=== PATIENT | male | born 1935 | race Caucasian/White ===

== ENCOUNTER 2020-06-18 10:56 | Observation (INO) ==
[2020-06-18 12:03] LABS: Hemoglobin 12.9 g/dL (12.9-16.9); Mean Corpuscular HGB Conc 32.3 g/dL (31.6-35.5); Mean Corpuscular Volume 96.2 fL (83.0-100.0); Mean Platelet Volume 10.2 fL (9.4-12.4); Platelet Count 238 K/mcL (140-400); Red Blood Count 4.16 M/mcL (4.19-5.50); Red Cell Distribution Width 13.5 % (11.5-14.5); White Blood Count 11.9 K/mcL (4.3-11.1)
[2020-06-18 12:09] LABS: INR 1.3; Prothrombin Time 15.1 Seconds (9.4-12.1)
[2020-06-18 12:12] LABS: Bilirubin,Urine Negative (Negative); Blood,Urine Moderate (Negative); Clarity,Urine Ex.Turbid (Clear); Color,Urine Red (Yellow); Glucose,Urine (UA) Normal (Normal); Ketones,Urine Trace mg/dL (Negative); Leukocyte Esterase,Urine Negative (Negative); Nitrite,Urine Negative (Negative); Protein,Urine >=600 mg/dL (Neg-Trace); Specific Gravity,Urine 1.025 (1.010-1.025); Urobilinogen,Urine Normal (Normal)
[2020-06-18 12:24] LABS: BUN/Creatinine Ratio 15 (6-26); Blood Urea Nitrogen 16 mg/dL (8-23); Calcium 8.7 mg/dL (8.6-10.3); Carbon Dioxide 20 mEq/L (23-29); Chloride 106 mEq/L (98-107); Glucose 120 mg/dL (70-105); Osmolality,Calculated 284 (280-300); Potassium 4.3 mEq/L (3.5-5.1); Sodium 136 mEq/L (136-145); eGFR For African Americans > 60 (> 60); eGFR For Non-African Americans > 60 (> 60)
[2020-06-18] MEDS ORDERED: Naloxone 0.4 MG/ML INJ IVP PRN (12:52)
[2020-06-18] MEDS ORDERED: D5% in Water 1,000 ML IVC PRN (13:14)
[2020-06-18] MEDS ORDERED: Dextrose Gel 15 GM/37.5 ML TUBE PO PRN ×2 (13:14)
[2020-06-18] MEDS ORDERED: *HR* Dextrose 50 % in Water (Vial) 50 ML VIAL IVP PRN (13:14)
[2020-06-18] MEDS: cefTRIAXone 1,000 MG in Water for inj. (sterile) 10 ML IVP SCH (18:50)
[2020-06-18] MEDS: 0.9 % Sodium Chloride 1,000 ML IVC SCH (18:55)
[2020-06-18] MEDS: Insulin LISPRO 300 UNITS/3 ML VIAL SQ SCH ×3 (19:11→21:59)
[2020-06-19 05:54] LABS: Basophils % 0.4 %; Eosinophils # 0.1 K/mcL (0.0-0.6); Hematocrit 34.1 % (37.5-50.1); Immature Granulocytes % 0.9 % (0-4); Lymphocytes # 1.7 K/mcL (0.6-4.6); Lymphocytes % 22.1 %; Mean Corpuscular HGB Conc 32.6 g/dL (31.6-35.5); Mean Corpuscular Hemoglobin 32.5 pg (28.0-33.3); Mean Corpuscular Volume 99.7 fL (83.0-100.0); Mean Platelet Volume 9.8 fL (9.4-12.4); Monocytes # 0.5 K/mcL (0.0-1.3); Monocytes % 6.4 %; Neutrophils # 5.3 K/mcL (1.6-8.9); Platelet Count 200 K/mcL (140-400); Red Blood Count 3.42 M/mcL (4.19-5.50); Red Cell Distribution Width 13.8 % (11.5-14.5); Segmented Neutrophils % 69.2 %; White Blood Count 7.7 K/mcL (4.3-11.1)
[2020-06-19 05:58] LABS: Hemoglobin 11.1 g/dL (12.9-16.9)
[2020-06-19] MEDS: Insulin LISPRO 300 UNITS/3 ML VIAL SQ SCH ×4 (07:57→21:48)
[2020-06-19] MEDS: cefTRIAXone 1,000 MG in Water for inj. (sterile) 10 ML IVP SCH (10:01)
[2020-06-19] MEDS: 0.9 % Sodium Chloride 1,000 ML IVC SCH (10:01)
[2020-06-19 11:42] LABS: Adenovirus Not Detected (Not Detect); Bordetella Pertussis Not Detected (Not Detect); Chlamydophila pneumoniae Not Detected (Not Detect); Coronavirus 229E Not Detected (Not Detect); Coronavirus HKU1 Not Detected (Not Detect); Coronavirus NL63 Not Detected (Not Detect); Coronavirus OC43 Not Detected (Not Detect); Human Metapneumovirus Not Detected (Not Detect); Human Rhinovirus/Enterovirus Not Detected (Not Detect); Influenza A Subtype 2009 H1 Not Detected (Not Detect); Influenza B Not Detected (Not Detect); Mycoplasma pneumoniae Not Detected (Not Detect); Parainfluenza Virus 1 Not Detected (Not Detect); Parainfluenza Virus 2 Not Detected (Not Detect); Parainfluenza Virus 3 Not Detected (Not Detect); Parainfluenza Virus 4 Not Detected (Not Detect); Respiratory Syncytial Virus Not Detected (Not Detect); SARS-CoV-2 Not Detected (Not Detect)
[2020-06-19] MEDS ORDERED: Ipratropium/Albuterol Neb 3 ML IH PRN (12:34)
[2020-06-19] MEDS ORDERED: MOM Conc 10 ML UD.LIQ PO SCH (12:45)
[2020-06-19] MEDS: Piperacillin/Tazobactam 3.375 GM in 0.9 % Sodium Chloride Mini Bag 100 ML IVPB SCH (15:54)
[2020-06-19] MEDS: Budesonide Neb 0.5 MG/2 ML IH SCH (20:42)
[2020-06-19] MEDS ORDERED: RisperiDAL 3 MG TABLET PO SCH (21:00)
[2020-06-19] MEDS: Artificial Tears SOLN 15 ML BOTTLE BOTH EYES SCH (22:09)
[2020-06-20] MEDS: Piperacillin/Tazobactam 3.375 GM in 0.9 % Sodium Chloride Mini Bag 100 ML IVPB SCH ×3 (00:47→23:45)
[2020-06-20 08:22] LABS: Basophils % 0.5 %; Eosinophils # 0.2 K/mcL (0.0-0.6); Eosinophils % 2.2 %; Hematocrit 36.8 % (37.5-50.1); Hemoglobin 12.1 g/dL (12.9-16.9); Immature Granulocytes % 1.1 % (0-4); Lymphocytes # 1.6 K/mcL (0.6-4.6); Lymphocytes % 19.1 %; Mean Corpuscular HGB Conc 32.9 g/dL (31.6-35.5); Mean Corpuscular Hemoglobin 31.5 pg (28.0-33.3); Mean Corpuscular Volume 95.8 fL (83.0-100.0); Mean Platelet Volume 9.9 fL (9.4-12.4); Monocytes # 0.5 K/mcL (0.0-1.3); Monocytes % 6.5 %; Neutrophils # 5.7 K/mcL (1.6-8.9); Platelet Count 242 K/mcL (140-400); Red Blood Count 3.84 M/mcL (4.19-5.50); Red Cell Distribution Width 13.6 % (11.5-14.5); Segmented Neutrophils % 70.6 %; White Blood Count 8.1 K/mcL (4.3-11.1)
[2020-06-20 08:37] LABS: BUN/Creatinine Ratio 12 (6-26); Blood Urea Nitrogen 10 mg/dL (8-23); Calcium 8.8 mg/dL (8.6-10.3); Carbon Dioxide 22 mEq/L (23-29); Chloride 109 mEq/L (98-107); Glucose 87 mg/dL (70-105); Osmolality,Calculated 286 (280-300); Potassium 4.3 mEq/L (3.5-5.1); Sodium 139 mEq/L (136-145); eGFR For African Americans > 60 (> 60); eGFR For Non-African Americans > 60 (> 60)
[2020-06-20] MEDS ORDERED: Cholecalciferol (D-3) 1,000 UNIT (25MCG) TABLET PO SCH (09:00)
[2020-06-20] MEDS ORDERED: Multivit/Ca/Min/Fe/FA 1 TAB TABLET PO SCH (09:00)
[2020-06-20] MEDS ORDERED: Finasteride 5 MG TABLET PO SCH (09:00)
[2020-06-20] MEDS: Insulin LISPRO 300 UNITS/3 ML VIAL SQ SCH ×2 (09:54→18:18)
[2020-06-20] MEDS: Artificial Tears SOLN 15 ML BOTTLE BOTH EYES SCH ×2 (09:55→20:46)
[2020-06-20] MEDS ORDERED: Famotidine 20 MG/2 ML VIAL IVP ONE (10:41)
[2020-06-20] MEDS: Budesonide Neb 0.5 MG/2 ML IH SCH ×2 (10:46→21:45)
[2020-06-20] MEDS ORDERED: *HR* FentaNYL (PF) 100 MCG/2 ML VIAL IVP PRN (12:21)
[2020-06-20] MEDS ORDERED: Acetaminophen IV 1,000 MG/100 ML INFUS..BTL IVPB PRN (12:21)
[2020-06-20] MEDS ORDERED: *HR* Metoprolol 5 MG/5 ML VIAL IVP PRN (12:21)
[2020-06-20] MEDS ORDERED: Naloxone 0.4 MG/ML INJ IVP PRN ×2 (12:21→14:58)
[2020-06-20] MEDS ORDERED: flumazeniL 0.5 MG/5 ML VIAL IVP PRN (12:21)
[2020-06-20] MEDS ORDERED: *HR* HYDROmorphone PF 0.5 MG/0.5 ML SYRINGE IVP PRN (12:21)
[2020-06-20] MEDS ORDERED: Albuterol 2.5 MG/3 ML NEBULIZER IH PRN (12:21)
[2020-06-20] MEDS ORDERED: Lidocaine -MPF 2% 2 ML VIAL ONE (12:30)
[2020-06-20] MEDS ORDERED: *HR* Propofol 200 MG/20 ML VIAL IVP ONE (12:30)
[2020-06-20] MEDS ORDERED: Dexamethasone 4 MG/ML VIAL ONE (12:30)
[2020-06-20] MEDS ORDERED: Ondansetron 4 MG/2 ML VIAL ONE (12:30)
[2020-06-20] MEDS ORDERED: Lidocaine HCL 4 ML Topical Solution (Laryng-O-Jet Kit Sterile Pak) TP ONE (12:44)
[2020-06-20] MEDS: 0.9 % Sodium Chloride 1,000 ML IVC SCH ×2 (12:56→15:25)
[2020-06-20] MEDS ORDERED: *HR* FentaNYL (PF) 100 MCG/2 ML VIAL ONE (12:58)
[2020-06-20] MEDS ORDERED: D5% in Water 1,000 ML IVC PRN (14:58)
[2020-06-20] MEDS ORDERED: Ipratropium/Albuterol Neb 3 ML IH PRN (14:58)
[2020-06-20] MEDS ORDERED: MOM Conc 10 ML UD.LIQ PO SCH (14:58)
[2020-06-20] MEDS ORDERED: *HR* Dextrose 50 % in Water (Vial) 50 ML VIAL IVP PRN (14:58)
[2020-06-20] MEDS ORDERED: Dextrose Gel 15 GM/37.5 ML TUBE PO PRN ×2 (14:58)
[2020-06-20] MEDS ORDERED: Insulin LISPRO 300 UNITS/3 ML VIAL SQ SCH (21:00)
[2020-06-20] MEDS ORDERED: RisperiDAL 3 MG TABLET PO SCH (21:00)
[2020-06-21 05:55] LABS: BUN/Creatinine Ratio 20 (6-26); Blood Urea Nitrogen 16 mg/dL (8-23); Carbon Dioxide 20 mEq/L (23-29); Chloride 110 mEq/L (98-107); Glucose 137 mg/dL (70-105); Osmolality,Calculated 287 (280-300); Potassium 4.5 mEq/L (3.5-5.1); Sodium 137 mEq/L (136-145); eGFR For African Americans > 60 (> 60); eGFR For Non-African Americans > 60 (> 60)
[2020-06-21] MEDS: 0.9 % Sodium Chloride 1,000 ML IVC SCH (05:56)
[2020-06-21 07:42] LABS: Basophils % 0.2 %; Hematocrit 33.2 % (37.5-50.1); Hemoglobin 10.6 g/dL (12.9-16.9); Immature Granulocytes % 0.8 % (0-4); Mean Corpuscular HGB Conc 31.9 g/dL (31.6-35.5); Mean Corpuscular Hemoglobin 31.4 pg (28.0-33.3); Mean Corpuscular Volume 98.2 fL (83.0-100.0); Mean Platelet Volume 12.2 fL (9.4-12.4); Monocytes # 0.3 K/mcL (0.0-1.3); Neutrophils # 8.6 K/mcL (1.6-8.9); Platelet Count 169 K/mcL (140-400); Red Blood Count 3.38 M/mcL (4.19-5.50); Red Cell Distribution Width 13.4 % (11.5-14.5)
[2020-06-21] MEDS ORDERED: Finasteride 5 MG TABLET PO SCH (09:00)
[2020-06-21] MEDS ORDERED: Cholecalciferol (D-3) 1,000 UNIT (25MCG) TABLET PO SCH (09:00)
[2020-06-21] MEDS ORDERED: Multivit/Ca/Min/Fe/FA 1 TAB TABLET PO SCH (09:00)
[2020-06-21] MEDS: Insulin LISPRO 300 UNITS/3 ML VIAL SQ SCH ×2 (09:08→12:05)
[2020-06-21] MEDS: Piperacillin/Tazobactam 3.375 GM in 0.9 % Sodium Chloride Mini Bag 100 ML IVPB SCH (09:10)
[2020-06-21] MEDS: Budesonide Neb 0.5 MG/2 ML IH SCH (09:28)
[2020-06-21 11:29] VITALS: BP 101/64
[2020-06-21] MEDS: Artificial Tears SOLN 15 ML BOTTLE BOTH EYES SCH (12:04)
== END 2020-06-21 15:25 | disposition home health service (06) ==
LOC: 3ANU 10:56 → EMEROOARM 10:56 → 3ANU 17:05
PROVIDERS: ADMIT Internal Medicine; ATTEND Internal Medicine

== ENCOUNTER 2020-08-13 22:51 | Inpatient (IN) ==
[2020-08-13 23:24] LABS: Bilirubin,Urine Negative (Negative); Blood,Urine Negative (Negative); Clarity,Urine Clear (Clear); Color,Urine Light-Yellow (Yellow); Glucose,Urine (UA) Normal (Normal); Ketones,Urine Negative (Negative); Leukocyte Esterase,Urine Trace (Negative); Mucus,Urine Few per lpf (None-Few); Nitrite,Urine Negative (Negative); PH,Urine 7.5 pH Units (5.0-8.0); Protein,Urine Negative (Neg-Trace); RBC,Urine 0-3 per hpf (0-3); Urobilinogen,Urine Normal (Normal)
[2020-08-13 23:46] LABS: Basophils % 0.6 %; Eosinophils # 0.3 K/mcL (0.0-0.6); Hematocrit 41.5 % (37.5-50.1); Hemoglobin 13.2 g/dL (12.9-16.9); Immature Granulocytes % 0.7 % (0-4); Lymphocytes % 27.1 %; Mean Corpuscular HGB Conc 31.8 g/dL (31.6-35.5); Mean Corpuscular Hemoglobin 30.6 pg (28.0-33.3); Mean Corpuscular Volume 96.1 fL (83.0-100.0); Mean Platelet Volume 10.2 fL (9.4-12.4); Monocytes # 0.5 K/mcL (0.0-1.3); Monocytes % 6.6 %; Neutrophils # 4.4 K/mcL (1.6-8.9); Platelet Count 263 K/mcL (140-400); Red Blood Count 4.32 M/mcL (4.19-5.50); Red Cell Distribution Width 12.9 % (11.5-14.5); White Blood Count 7.2 K/mcL (4.3-11.1)
[2020-08-13 23:50] LABS: VBG HCO3 28 mEq/L (21-27); VBG PCO2 56 mmHg (41-51); VBG PO2 41 mmHg (25-50)
[2020-08-14 00:07] LABS: BUN/Creatinine Ratio 20 (6-26); Blood Urea Nitrogen 18 mg/dL (8-23); Calcium 9.3 mg/dL (8.6-10.3); Carbon Dioxide 28 mEq/L (23-29); Chloride 108 mEq/L (98-107); Glucose 105 mg/dL (70-105); Osmolality,Calculated 296 (280-300); Potassium 4.1 mEq/L (3.5-5.1); Sodium 142 mEq/L (136-145); eGFR For African Americans > 60 (> 60); eGFR For Non-African Americans > 60 (> 60)
[2020-08-14 00:08] LABS: Troponin I < 0.03 ng/mL (< 0.04)
[2020-08-14] MEDS ORDERED: Naloxone 0.4 MG/ML INJ IVP PRN (02:01)
[2020-08-14] MEDS ORDERED: Ondansetron 4 MG/2 ML VIAL IVP PRN (02:01)
[2020-08-14] MEDS ORDERED: Ipratropium/Albuterol Neb 3 ML IH PRN (02:22)
[2020-08-14 05:02] LABS: Phosphorous 3.7 mg/dL (2.7-4.5)
[2020-08-14 05:16] LABS: Thyroid Stimulating Hormone 5.747 mcIU/mL (0.340-5.600)
[2020-08-14 05:27] LABS: Folate 10.1 ng/mL (3.0-16.0)
[2020-08-14] MEDS: Budesonide Neb 0.5 MG/2 ML IH SCH ×2 (07:24→19:51)
[2020-08-14] MEDS: Finasteride 5 MG TABLET PO SCH (09:00)
[2020-08-14] MEDS: Aspirin Enteric Coated 81 MG Tablet PO SCH (09:00)
[2020-08-14] MEDS: Cholecalciferol (D-3) 1,000 UNIT (25MCG) TABLET PO SCH (09:00)
[2020-08-14] MEDS: Apixaban 5 MG TABLET PO SCH ×2 (09:00→21:25)
[2020-08-14 10:00] LABS: Triiodothyronine (T3) Total 0.99 ng/mL (0.87-1.78)
[2020-08-14] MEDS ORDERED: MOM Conc 10 ML UD.LIQ PO PRN (12:23)
[2020-08-14] MEDS: Ertapenem 1,000 MG in 0.9 % Sodium Chloride Mini Bag 100 ML IVPB SCH (14:22)
[2020-08-14] MEDS ORDERED: RisperiDAL 3 MG TABLET PO SCH (21:00)
[2020-08-14] MEDS: VISINE TEARS DROPS 15 ML BOTH EYES SCH (21:26)
[2020-08-15] MEDS: Budesonide Neb 0.5 MG/2 ML IH SCH ×2 (07:28→19:42)
[2020-08-15] MEDS: Ertapenem 1,000 MG in 0.9 % Sodium Chloride Mini Bag 100 ML IVPB SCH (07:46)
[2020-08-15] MEDS: Finasteride 5 MG TABLET PO SCH (07:47)
[2020-08-15] MEDS: Apixaban 5 MG TABLET PO SCH ×2 (07:47→19:43)
[2020-08-15] MEDS: Cholecalciferol (D-3) 1,000 UNIT (25MCG) TABLET PO SCH (07:47)
[2020-08-15] MEDS: Aspirin Enteric Coated 81 MG Tablet PO SCH (07:47)
[2020-08-15] MEDS: VISINE TEARS DROPS 15 ML BOTH EYES SCH ×2 (07:48→19:53)
[2020-08-15] MEDS ORDERED: Sulfamethoxazole/Trimeth DS 1 EACH TABLET PO SCH (21:00)
[2020-08-16] MEDS: Budesonide Neb 0.5 MG/2 ML IH SCH ×2 (08:25→19:42)
[2020-08-16] MEDS: Finasteride 5 MG TABLET PO SCH (09:10)
[2020-08-16] MEDS: Apixaban 5 MG TABLET PO SCH ×2 (09:10→21:22)
[2020-08-16] MEDS: Aspirin Enteric Coated 81 MG Tablet PO SCH (09:11)
[2020-08-16] MEDS: Cholecalciferol (D-3) 1,000 UNIT (25MCG) TABLET PO SCH (09:11)
[2020-08-16] MEDS: VISINE TEARS DROPS 15 ML BOTH EYES SCH ×2 (09:13→21:24)
[2020-08-17] MEDS: Budesonide Neb 0.5 MG/2 ML IH SCH ×2 (08:04→22:08)
[2020-08-17 08:15] LABS: Hematocrit 43.3 % (37.5-50.1); Hemoglobin 14.2 g/dL (12.9-16.9); Mean Corpuscular HGB Conc 32.8 g/dL (31.6-35.5); Mean Corpuscular Hemoglobin 30.6 pg (28.0-33.3); Mean Corpuscular Volume 93.3 fL (83.0-100.0); Mean Platelet Volume 10.5 fL (9.4-12.4); Platelet Count 255 K/mcL (140-400); Red Blood Count 4.64 M/mcL (4.19-5.50); White Blood Count 7.1 K/mcL (4.3-11.1)
[2020-08-17 08:33] LABS: BUN/Creatinine Ratio 20 (6-26); Blood Urea Nitrogen 18 mg/dL (8-23); Calcium 9.2 mg/dL (8.6-10.3); Carbon Dioxide 22 mEq/L (23-29); Chloride 108 mEq/L (98-107); Glucose 86 mg/dL (70-105); Osmolality,Calculated 289 (280-300); Potassium 4.5 mEq/L (3.5-5.1); Sodium 139 mEq/L (136-145); eGFR For African Americans > 60 (> 60); eGFR For Non-African Americans > 60 (> 60)
[2020-08-17] MEDS: Apixaban 5 MG TABLET PO SCH ×2 (09:15→19:35)
[2020-08-17] MEDS: Finasteride 5 MG TABLET PO SCH (09:16)
[2020-08-17] MEDS: Aspirin Enteric Coated 81 MG Tablet PO SCH (09:16)
[2020-08-17] MEDS: Cholecalciferol (D-3) 1,000 UNIT (25MCG) TABLET PO SCH (09:16)
[2020-08-17] MEDS: VISINE TEARS DROPS 15 ML BOTH EYES SCH ×2 (09:18→19:36)
[2020-08-18] MEDS: Budesonide Neb 0.5 MG/2 ML IH SCH ×2 (07:35→21:50)
[2020-08-18] MEDS: Cholecalciferol (D-3) 1,000 UNIT (25MCG) TABLET PO SCH (08:41)
[2020-08-18] MEDS: Finasteride 5 MG TABLET PO SCH (08:41)
[2020-08-18] MEDS: Apixaban 5 MG TABLET PO SCH ×2 (08:41→21:02)
[2020-08-18] MEDS: Aspirin Enteric Coated 81 MG Tablet PO SCH (08:43)
[2020-08-18] MEDS: VISINE TEARS DROPS 15 ML BOTH EYES SCH ×2 (20:50→21:07)
[2020-08-19] MEDS: Cholecalciferol (D-3) 1,000 UNIT (25MCG) TABLET PO SCH (08:50)
[2020-08-19] MEDS: Finasteride 5 MG TABLET PO SCH (08:50)
[2020-08-19] MEDS: Aspirin Enteric Coated 81 MG Tablet PO SCH (08:50)
[2020-08-19] MEDS: Apixaban 5 MG TABLET PO SCH (08:50)
[2020-08-19] MEDS: VISINE TEARS DROPS 15 ML BOTH EYES SCH (08:51)
[2020-08-19] MEDS: Budesonide Neb 0.5 MG/2 ML IH SCH (10:05)
[2020-08-19 11:16] VITALS: BP 119/88
== END 2020-08-19 17:19 | DRG 689 ==
LOC: EMEROOARM 22:51 → 3BNU 22:51 → SUATTDRO 08-14 01:10 → 3BNU 08-14 02:04 → SUATTDRO 08-15 12:10
PROVIDERS: ADMIT Internal Medicine; ATTEND Internal Medicine